=== PATIENT | male | born 2000 | race Hispanic/Latino ===

== ENCOUNTER 2020-06-26 11:31 | Emergency (ER) | payer SELFPAY ==
[2020-06-26] MEDS ORDERED: TETANUS/DIPHTHERIA TOXOID [ADULT] 0.5 ML VIAL IM ONE (12:28)
[2020-06-26] MEDS ORDERED: OCTYL 2-CYANOACRYLATE 1 EACH TP ONE (12:28)
[2020-06-26] MEDS ORDERED: AMOX/CLAV 875/125MG TAB PO ONE (12:43)
== END 2020-06-26 13:52 | disposition home or self-care (01) ==
LOC: EDH 11:31
DX: S00.83XA Contusion of other part of head, initial encounter (principal); S40.811A Abrasion of right upper arm, initial encounter; Y04.1XXA Assault by human bite, initial encounter; Y93.89 Activity, other specified; Y92.89 Other specified places as the place of occurrence of the external cause; Y99.8 Other external cause status
CPT/HCPCS: 12001; 90471; 90714

== ENCOUNTER 2024-11-22 19:55 | Emergency (ER) | payer SELFPAY ==
[~2024-11-22] VITALS: Ht 172.7 cm; Wt 131.5 kg
--- NOTE | 2024-11-22 19:59 | NUR ---
PT CARE ASSUMED AT THIS TIME
[2024-11-22 20:19] LABS: IMMATURE GRANULOCYTE ABSOLUTE 0.03 K/uL (0-1); NUCLEATED RED BLOOD CELLS 0.0 % (0.0-0.19); PLATELET COUNT (AUTO) 257 K/uL (130-400); RED BLOOD CELL COUNT(AUTO) 5.16 MIL/uL (4.50-6.20); RED CELL DISTRIBUTION WIDTH 13.8 % (11.0-15.5); WHITE BLOOD COUNT (AUTO) 11.0 K/uL (4.8-10.8)
[2024-11-22] MEDS: LACTATED RINGERS 1000ML IV STA (20:33)
[2024-11-22 20:34] LABS: RAPID GROUP A STREP negative (NEGATIVE)
[2024-11-22 20:34] LABS: CREATININE 0.8 mg/dL (0.5-1.3); GLOMERULAR FILTR. RATE CALC 125.0 mL/min (>90); GLUCOSE,RANDOM 103.0 mg/dL (70-105); SODIUM SERUM 141.0 mmol/L (136-145); UREA NITROGEN, BLOOD 8.0 mg/dL (7-18)
[2024-11-22 20:41] LABS: INFLUENZA TYPE A Negative For Type A (NEGATIVE); INFLUENZA TYPE B Negative For Type B (NEGATIVE)
[2024-11-22 20:42] LABS: COVID19 (SARS ANTIGEN RAPID) PRESUMPTIVE NEGATIVE (NEGATIVE)
[2024-11-22 20:49] LABS: ASPARTATE AMINOTRANSFERASE 29.0 U/L (10-37); TOTAL PROTEIN, SERUM 7.8 g/dL (6.0-8.3)
--- NOTE | 2024-11-22 20:53 | ERN ---
General Chief Complaint: Flu Symptoms Stated Complaint: RUNNY NOSE, CONGESTION, HEADACHE Time Seen by MD: 20:00 History of Present Illness Initial Comments 24-year-old male who has had a runny nose and a cough for five days now. It is not getting better. Today he experiences nausea vomiting and diarrhea as well as lightheadedness. He does feel his airways are a bit constricted. Allergies: Coded Allergies: No Known Allergies (Unverified Allergy, Unknown, 06/26/20) Past Medical History Past Medical History: No Pertinent History Past Surgical History: None Constitutional: (-) chills, (-) diaphoresis, (-) fever, (-) malaise, (-) weakness, (-) other documentation EENTM: (-) eye pain, (-) blurred vision, (-) tearing, (-) double vision, (-) ear pain, (-) ear discharge, (-) nose pain, (-) nose congestion, (-) throat pain, (-) Throat swelling, (-) mouth pain, (-) tooth pain, (-) mouth swelling, (-) other documentation Respiratory: (+) cough, (+) short of breath Cardiovascular: (-) chest pain, (-) edema, (-) palpitations, (-) syncope, (-) dyspnea on exertion, (-) other documentation Gastrointestinal/Abdominal: (+) nausea, (+) vomiting, (+) diarrhea Musculoskeletal: (-) Neck pain, (-) back pain, (-) Flank Pain, (-) joint pain, (-) joint swelling, (-) muscle pain, (-) muscle stiffness, (-) gout, (-) other documentation Skin: (-) laceration, (-) contusion, (-) abrasion, (-) abscess, (-) rash, (-) change in color, (-) change in hair, (-) change in nails, (-) diaphoresis, (-) dryness, (-) other documentation Physical Exam General Appearance: (+) mild distress Orientation: (+) alert, (+) oriented x 3 Head/Face Trauma: No Eye: bilateral eye normal inspection, bilateral eye PERRL, bilateral eye EOMI Ear, Nose, Throat: (+) hearing grossly normal, (+) normal ENT inspection, (+) moist mucous membraine Neck: (+) normal inspection, (+) supple, (+) full range of motion Respiratory: (+) chest non-tender, (+) lungs clear, (+) well ventilated Heart: (+) regular, (+) no gallop Vascular: (+) no edema, (+) normal peripheral pulse Gastrointestinal: (+) soft, (+) non-tender, (+) bowel sound present Results Laboratory and Microbiology Lab and Micro Result Laboratory Tests Test 11/22/24 20:10 11/22/24 20:18 White Blood Count 11.0 K/uL (4.8-10.8) H Red Blood Count 5.16 MIL/uL (4.50-6.20) Hemoglobin 14.8 g/dL (14.0-18.0) Hematocrit 45.8 % (42-54) Mean Corpuscular Volume 88.8 fL (79-99) Mean Corpuscular Hemoglobin 28.7 pg (27.0-33.0) Mean Corpuscular Hemoglobin Concent 32.3 g/dL (32.0-36.0) Red Cell Distribution Width 13.8 % (11.0-15.5) Platelet Count 257 K/uL (130-400) Mean Platelet Volume 11.4 fL (7.5-10.5) H Immature Granulocyte % (Auto) 0.3 % (0-1) Neutrophils (%) (Auto) 64.3 % (40.0-77.0) Lymphocytes (%) (Auto) 23.3 % (21.0-51.0) Monocytes (%) (Auto) 6.3 % (3.0-13.0) Eosinophils (%) (Auto) 4.8 % (0.0-8.0) Basophils (%) (Auto) 1.0 % (0.0-5.0) Neutrophils # (Auto) 7.1 K/uL (1.8-7.7) Lymphocytes # (Auto) 2.6 K/uL (1.0-4.8) Monocytes # (Auto) 0.7 K/uL (0.1-1.0) Eosinophils # (Auto) 0.53 K/uL (0.00-0.70) Basophils # (Auto) 0.11 K/uL (0.00-0.20) Absolute Immature Granulocyte (auto 0.03 K/uL (0-1) Nucleated Red Blood Cells 0.0 % (0.0-0.19) Sodium Level 141 mmol/L (136-145) Potassium Level 4.4 mmol/L (3.5-5.1) Chloride Level 101 mmol/L (101-111) Carbon Dioxide Level 34 mmol/L (21-32) H Blood Urea Nitrogen 8 mg/dL (7-18) Creatinine 0.8 mg/dL (0.5-1.3) Glomerular Filtration Rate Calc 125 mL/min (>90) Random Glucose 103 mg/dL (70-105) Total Calcium 9.9 mg/dL (8.5-10.1) Total Bilirubin 0.2 mg/dL (0.2-1.0) Aspartate Amino Transf (AST/SGOT) 29 U/L (10-37) Alanine Aminotransferase (ALT/SGPT) 56 U/L (12-78) Alkaline Phosphatase 81 U/L (50-136) Total Protein 7.8 g/dL (6.0-8.3) Albumin 3.9 g/dL (3.5-5.0) Influenza Type A Antigen Negative For Type A Influenza Type B Antigen Negative For Type B SARS-CoV-2 Antigen (Rapid) PRESUMPTIVE NEGATIVE Group A Streptococcus Rapid negative (NEGATIVE) MDM MDM: Differential diagnosis: Upper respiratory tract infection, flu, COVID, strep, gastroenteritis, dehydration. Rationale: Tests considered and ordered secondary to shared decision making include: Previous outside records reviewed: Old ER visits. Risk of complication and/or morbidity or mortality of patient management: None Medications-Per medication reconciliation Need for hospitalization: Patient does meet criteria for hospitalization. Need for emergency major/minor surgery: No There are no social concerns with this patient. Prescription drug management Prescriptions will include symptomatic care Patient's prior external medical records from other ER visits were reviewed by me as indicated. Prior testing and results from previous visits were reviewed. Prior tests were taken into account with medical decision making and resource utilization, independent historian/historians were used to obtain complete medical history. I independently interpreted the test that were performed, results were reviewed by me and considered findings on radiology if ordered. ED Course Orders Procedure Category Date Status Time Cbc With Differential LAB 11/22/24 Complete 20:01 Covid19 (Sars Antigen LAB 11/22/24 Complete Rapid) 20:01 Influenza Type A & B, LAB 11/22/24 Complete Rapid 20:01 Rapid (Group A Strep) LAB 11/22/24 Complete 20:01 Comprehensive LAB 11/22/24 Complete Metabolic Panel 20:01 Urinalysis Profile LAB 11/22/24 Logged 20:01 Lactated Ringers PHA 11/22/24 Complete 1000ml (Lactated 20:01 Current Medications Medications (Trade) Dose Ordered Sig/Mel Route PRN Reason Start Time Stop Time Status Last Admin Dose Admin Lactated Ringer's (Lactated Ringers 1000ml) 1,000 ml BOLUS STAT IV 11/22/24 20:01 11/22/24 20:04 DC 11/22/24 20:33 Vital Signs Date Time Temp Pulse Resp B/P (MAP) Pulse Ox O2 Delivery O2 Flow Rate FiO2 11/22/24 21:42 65 15 126/82 98 Room Air* 0 21 11/22/24 20:24 98.2 58 16 151/89 98 Room Air* 0 21 11/22/24 19:56 97.5 70 18 144/84 98 Room Air Patient's lab studies show a white blood cell count of 10 which is 0.2 above normal. His nasal swabs are negative for influenza strep throat and COVID. Patient states he does feel better with the fluids. I explained to the patient that there is no need for antibiotics at this point he has most likely a viral upper respiratory tract infection. The symptoms should resolve their. DX & DISP Disposition: Discharge Departure Impression: Primary Impression: Upper respiratory tract infection Condition: Stable Referrals: SELF,REFERRAL (PCP) You have a viral infection in your throat. There was no role for antibiotics. I have given you some fluids as I expect you are dehydrated from the infection. You stated that they may do feel better. Please drink plenty of fluids they will help you mobilize the secretions out of your throat and lung. A good rule is to drink enough fluids every day so that at least once a day your urine is clear. Please follow-up with her primary care provider if this does not improve within the next week. AGNES ALCANTAR MD Nov 22, 2024 20:53
[2024-11-22 22:13] VITALS: BP 132/87; PULSE 69; RESP 15; TEMP 98.5; O2SAT 98
== END 2024-11-22 22:19 | disposition home or self-care (01) ==
LOC: EDH 19:55
DX: J06.9 Acute upper respiratory infection, unspecified (principal); Z20.822 Contact with and (suspected) exposure to COVID-19
CPT/HCPCS: 99283; 96360; 96361; 87426; 80053; 85025; 87880; 87804 ×2; 36415; J7120